=== PATIENT | female | born 1980 | race American Indian/Alaskan Native ===

== ENCOUNTER 2018-06-17 12:52 | Emergency (ER) | payer MEDICAID, OTHER ==
[2018-06-17 13:50] VITALS: BP 116/63
--- NOTE | 2018-06-17 14:07 | EDM.PDOC ---
ED HPI GENERAL MEDICAL PROBLEM - General Chief Complaint: Respiratory Problem Stated Complaint: COUGH Time Seen by Provider: 06/17/18 13:58 Source of Information: Reports: Patient, RN Notes Reviewed History Limitations: Reports: No Limitations - History of Present Illness INITIAL COMMENTS - FREE TEXT/NARRATIVE: 37-year-old female presents to the emergency department day complaint of cough and congestion and some shortness of breath, she states she's been ill for about a week she does produce yellowish sputum and she has lots of sinus congestion with postnasal drip. 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: Endocrine/Metabolic History: Reports: Diabetes, Gestational - Past Surgical History GI Surgical History: Reports: ERCP Social & Family History - Family History Endocrine/Metabolic: Reports: Diabetes, type II - Tobacco Use Smoking Status *Q: Current Every Day Smoker Years of Tobacco use: 12 Packs/Tins Daily: 0.2 - Caffeine Use Caffeine Use: Reports: Coffee, Soda, Tea - Recreational Drug Use Recreational Drug Use: No ED ROS GENERAL - Review of Systems Review Of Systems: See Below Constitutional: Denies: Fever, Chills HEENT: Reports: Sinus Problem Respiratory: Reports: Shortness of Breath, Cough, Sputum Cardiovascular: Reports: No Symptoms GI/Abdominal: Reports: No Symptoms ED EXAM, GENERAL - Physical Exam Exam: See Below Exam Limited By: No Limitations General Appearance: Alert, WD/WN, No Apparent Distress Eye Exam: Bilateral Eye: Normal Inspection Ears: Normal External Exam, Normal Canal, Hearing Grossly Normal, Normal TMs, Other (Right is blocked by cerumen) Nose: Normal Inspection, Normal Mucosa, No Blood Throat/Mouth: Normal Inspection, Normal Lips, Normal Teeth, Normal Gums, Normal Oropharynx, Normal Voice, No Airway Compromise Head: Atraumatic, Normocephalic Neck: Normal Inspection, Supple, Non-Tender, Full Range of Motion Respiratory/Chest: No Respiratory Distress, Lungs Clear, Normal Breath Sounds, No Accessory Muscle Use, Chest Non-Tender Cardiovascular: Regular Rate, Rhythm, No Murmur Course - Vital Signs Last Recorded V/S: Last Vital Signs Temp 97.3 F 06/17/18 13:52 Pulse 91 06/17/18 13:52 Resp 11 L 06/17/18 13:52 BP 116/63 06/17/18 13:52 Pulse Ox 99 06/17/18 13:52 Departure - Departure Time of Disposition: 14:06 Disposition: Home, Self-Care 01 Condition: Good Clinical Impression: Bronchitis - Discharge Information Prescriptions: Azithromycin [Zithromax] 250 mg PO DAILY #6 tab Benzonatate [Tessalon Perle] 100 mg PO TID #30 capsule Referrals: PCP,None [Primary Care Provider] - Additional Instructions: Take full course of antibiotics, use Tessalon Perles as needed help suppress cough, Please followup with your primary care provider in 3-5 days if not better, please call return to the emergency department with worsening of symptoms. - Assessment/Plan Plan: Assessment Acuity = acute Site and laterality = bronchitis Etiology = probable underlying bacterial cause Manifestations = cough, sputum production Location of injury = Home Lab values = none Plan Because she has been ill for over a week elected to treat empirically with azithromycin Z-Ty also prescription written for Tessalon Perles 100 mg by mouth 3 times a day when necessary total #30 This note was dictated using [employer] voice recognition software please call with any questions on syntax or grammar.
== END 2018-06-17 14:19 | disposition home or self-care (01) ==
LOC: JP.ED 12:52
DX: J40 Bronchitis, not specified as acute or chronic (principal); F17.210 Nicotine dependence, cigarettes, uncomplicated; Z79.899 Other long term (current) drug therapy
CPT/HCPCS: 99282

== ENCOUNTER 2020-11-20 14:05 | Emergency (ER) | payer MEDICAID, OTHER ==
[2020-11-20 14:40] VITALS: BP 124/81; PULSE 65
--- NOTE | 2020-11-20 15:30 | EDM.PDOC ---
ED HPI GENERAL MEDICAL PROBLEM - General Chief Complaint: General Stated Complaint: HEADACHE,CONGESTED,COUGH Time Seen by Provider: 11/20/20 14:45 Source of Information: Reports: Patient History Limitations: Reports: No Limitations - History of Present Illness INITIAL COMMENTS - FREE TEXT/NARRATIVE: 40-year-old female who has had cold symptoms, upper respiratory symptoms for the past several days. No shortness of breath or cough, mild sore throat, mild headache and low-grade fevers. She wants to be checked for Covid before she goes back to work. She is not vaccinated. Onset: Gradual Duration: Day(s): (3 days of symptoms) Associated Symptoms: Reports: Fever/Chills, Headaches, Other (Mild sore throat nasal congestion). 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: Endocrine/Metabolic History: Reports: Diabetes, Gestational - Past Surgical History GI Surgical History: Reports: ERCP Social & Family History - Family History Endocrine/Metabolic: Reports: Diabetes, type II - Tobacco Use Tobacco Use Status *Q: Current Every Day Tobacco User Years of Tobacco use: 15 Packs/Tins Daily: 0.1 - Caffeine Use Caffeine Use: Reports: Coffee, Soda, Tea ED ROS GENERAL - Review of Systems Review Of Systems: See Below Constitutional: Reports: Fever, Chills, Malaise HEENT: Reports: Rhinitis, Throat Pain Respiratory: Denies: Shortness of Breath, Cough Musculoskeletal: Reports: Muscle Pain (Some generalized muscle pain and body aches) Neurological: Reports: Headache ED EXAM, GENERAL - Physical Exam Exam: See Below Exam Limited By: No Limitations General Appearance: Alert, No Apparent Distress Eye Exam: Bilateral Eye: Normal Inspection Ears: Normal TMs Throat/Mouth: Normal Inspection Respiratory/Chest: No Respiratory Distress, Lungs Clear Cardiovascular: Regular Rate, Rhythm. No: Tachycardia Neurological: Alert, Oriented Course - Vital Signs Last Recorded V/S: Last Vital Signs Temp 97.2 F 11/20/20 15:49 Pulse 65 11/20/20 15:49 Resp 16 09/18/21 15:49 BP 124/81 11/20/20 15:49 Pulse Ox 98 11/20/20 15:49 - Orders/Labs/Meds Labs: Laboratory Tests 11/20/20 Range/Units 15:49 SARS-CoV-2 RNA ([facility]) Positive H (NEGATIVE) - Re-Assessments/Exams Free Text/Narrative Re-Assessment/Exam: 11/20/20 16:00 Rapid Covid was tested and is positive. This was relayed to the patient, she will discuss this with her work and follow their protocol. I recommended she rest, get fluids, [id number] medications for cold symptoms as needed and return if worsening such as difficulty breathing. Departure - Departure Time of Disposition: 15:50 Disposition: Home, Self-Care 01 Clinical Impression: Viral URI, COVID-19 - Discharge Information Instructions: Upper Respiratory Infection, Adult, [id number] Referrals: PCP,None [Primary Care Provider] - Forms: ED Department Discharge Care Plan Goals: Rest, fluids, increase activity as tolerated and [id number] cold medicines may be helpful. Sepsis Event Note (ED) - Focused Exam Vital Signs: Vital Signs Temp Pulse Resp BP Pulse Ox 11/20/20 15:49 97.2 F 65 16 124/81 98 11/20/20 14:39 97.2 F 65 16 124/81 98
== END 2020-11-20 15:51 | disposition home or self-care (01) ==
LOC: JP.ED 14:05
DX: U07.1 COVID-19 (principal); J06.9 Acute upper respiratory infection, unspecified; Z72.0 Tobacco use
CPT/HCPCS: 99284; U0002

== ENCOUNTER 2021-10-23 19:22 | Emergency (ER) | payer MEDICAID, OTHER ==
[2021-10-23 19:51] VITALS: BP 114/84; PULSE 80
== END 2021-10-23 20:23 | disposition home or self-care (01) ==
LOC: JP.ED 19:22
DX: U07.1 COVID-19 (principal)
CPT/HCPCS: 99283; U0002